=== PATIENT | male | born 1990 | race Hispanic/Latino ===

== ENCOUNTER 2018-05-27 09:59 | Emergency (ER) | payer OTHER ==
[2018-05-27] MEDS ORDERED: FAMOTIDINE 20MG TAB 20 MG TAB ONE (10:13)
[2018-05-27] MEDS ORDERED: DIPHENHYDRAMINE HCL 25 MG CAPSULE ONE (10:13)
[2018-05-27] MEDS ORDERED: DEXAMETHASONE SOD PHOSPHATE 10MG/ML 1ML VIAL ONE (10:13)
== END 2018-05-27 10:37 | disposition home or self-care (01) ==
LOC: EEVIPCON 09:59 → EDH 09:59
DX: L50.0 Allergic urticaria (principal)
CPT/HCPCS: 99283; J1100; Q0163